=== PATIENT | female | born 1955 | race Caucasian/White ===

== ENCOUNTER → 2022-09-15 | Outpatient (CLI) | payer OTHER ==
[2022-09-15 16:44] LABS: Source, Urine Clean Catch
[2022-09-15 16:58] LABS: Bacteria Few /hpf; Red Blood Cells, Urine Not Seen /hpf (0-2); Squamous Epithelial Cells Few /hpf (Few)
== END ==
LOC: LAB 16:43 → LAB SHORT 16:43
PROVIDERS: Chiropractor
DX: R30.0 Dysuria (principal)
CPT/HCPCS: 81015

== ENCOUNTER 2023-04-02 20:29 | Emergency (ER) | payer OTHER ==
[~2023-04-02] VITALS: Ht 172.7 cm; Wt 127.0 kg
[2023-04-02 21:18] LABS: BASOPHILS ABSOLUTE AUTO 0.05 K/mm3 (0.00-0.23); BASOPHILS PERCENT AUTO 1 % (0-2); EOSINOPHILS ABSOLUTE AUTO 0.24 K/mm3 (0.00-0.68); EOSINOPHILS PERCENT AUTO 3 % (0-6); Hematocrit 45.3 % (33.0-51.0); Hemoglobin 14.9 g/dL (11.5-16.0); IMMATURE GRAN ABSOLUTE AUTO 0.04 K/mm3 (0.00-0.10); IMMATURE GRAN PERCENT AUTO 0 % (0-1); LYMPHOCYTES ABSOLUTE AUTO 2.83 K/mm3 (0.84-5.20); LYMPHOCYTES PERCENT AUTO 29 % (21-46); MONOCYTES ABSOLUTE AUTO 0.91 K/mm3 (0.16-1.47); MONOCYTES PERCENT AUTO 9 % (4-13); Mean Corpuscular HGB 28.5 pg (26.0-34.0); Mean Corpuscular HGB Conc 32.9 g/dL (31.5-36.5); Mean Corpuscular Volume 87 fL (80-100); Mean Platelet Volume 8.8 fL (9.1-12.4); NEUTROPHILS ABSOLUTE AUTO 5.67 K/mm3 (1.96-9.15); NEUTROPHILS PERCENT AUTO 58 % (41-73); Platelet Count 265 K/mm3 (150-400); RDW Coefficient Variation 13.9 % (11.7-14.2); RDW Standard Deviation 43.8 fL (35.1-46.3); Red Blood Cell Count 5.23 M/mm3 (3.80-5.20); White Blood Cell Count 9.74 K/mm3 (4.00-11.30)
[2023-04-02 21:40] LABS: Albumin, Blood 3.3 g/dL (3.4-5.0); Albumin/Globulin Ratio 0.9 (0.8-1.8); Bilirubin, Total 0.2 mg/dL (0.1-1.0); Bun/Creatinine Ratio 22.5 (12.0-20.0); Calcium, Blood 8.9 mg/dL (8.5-10.1); Creatinine, Blood 0.89 mg/dL (0.40-1.00); Globulin, Blood 3.7 g/dL (2.2-4.0); Potassium, Blood 4.1 mmol/L (3.5-5.5)
[2023-04-03] MEDS ORDERED: LOSARTAN POTASS25 M2 PO (01:59)
[2023-04-03] MEDS ORDERED: ELIQUIS5 M3 PO (01:59)
[2023-04-03 04:30] VITALS: BP 149/107
== END 2023-04-03 05:13 | disposition home or self-care (01) ==
LOC: ER 20:29
PROVIDERS: Student in an Organized Health Care Education/Training Program
DX: I48.91 Unspecified atrial fibrillation (principal); Z68.41 Body mass index [BMI] 40.0-44.9, adult
CPT/HCPCS: 71046; 80053; 84484; 85025

== ENCOUNTER 2023-11-02 06:54 | Day surgery (SDC) | payer BC, OTHER ==
[~2023-11-02] VITALS: Ht 172.7 cm; Wt 131.0 kg
[2023-11-02] VITALS (9 sets, daily range): BP systolic 103–161; BP diastolic 75–97
[~2023-11-02 06:54] MED LIST: ALBU90OI INH; AZELASTINE137 MCG/01; ELIQUIS5 M2 PO; ELIQUIS5 M3 PO; LOSA25 PO; LOSARTAN POTASS25 M2 PO
[2023-11-02] MEDS ORDERED: Heparin Sodium 1000 Units/ML 10ML MDV ONE (07:09)
[2023-11-02] MEDS ORDERED: CeFAZolin Sodium 1000 mg Vial ONE (07:09)
[2023-11-02] MEDS ORDERED: NS 1,000 ML IV ONE ×2 (07:09→07:49)
[2023-11-02] MEDS ORDERED: Ondansetron HCl 2 MG / ML 2ML Vial ONE (07:49)
[2023-11-02] MEDS ORDERED: Midazolam HCl 1MG / ML 2ML Vial ONE (07:49)
[2023-11-02] MEDS ORDERED: NS 100 ML IV ONE (07:49)
[2023-11-02] MEDS ORDERED: FentaNYL Citrate 50 MCG/ML 2 ML Injection ONE (07:49)
[2023-11-02] MEDS ORDERED: CeFAZolin Sodium 2,000 MG VIAL ONE (07:49)
[2023-11-02] MEDS ORDERED: Acetaminophen/Codeine 300-30 mg ONE (10:15)
--- NOTE | 2023-11-02 10:15 | NUR ---
ICE BAG PLACED ON L UPPER CHEST AREA.
== END 2023-11-02 15:25 | disposition home or self-care (01) ==
LOC: MHTC 06:54
DX: I49.5 Sick sinus syndrome (principal); I48.0 Paroxysmal atrial fibrillation; I10 Essential (primary) hypertension; E11.9 Type 2 diabetes mellitus without complications; E78.5 Hyperlipidemia, unspecified; E66.01 Morbid (severe) obesity due to excess calories; Z68.41 Body mass index [BMI] 40.0-44.9, adult; Z79.01 Long term (current) use of anticoagulants; Z79.899 Other long term (current) drug therapy
CPT/HCPCS: 33208; 71045; 99152; 99153; A9270; C1785; C1894; C1898; J0690; J1644; J2250; J2405; J3010; J7030; J7040; Q9967